=== PATIENT | male | born 1990 | race American Indian/Alaskan Native ===

== ENCOUNTER 2017-05-28 14:24 | Emergency (ER) | payer SELFPAY ==
[2017-05-28] MEDS ORDERED: MOTRIN PO ONE (18:40)
--- NOTE | 2017-05-28 19:02 | Emergency Department Report ---
Entered by KWABENA WASHINGTON, acting as scribe for ROMANA CHRISTOPHER NP. ED Back Pain/Injury HPI - General Chief Complaint: Back Pain/Injury Stated Complaint: BACK PAIN Time Seen by Provider: 05/28/17 18:36 Source: patient Mode of arrival: Ambulatory Limitations: No Limitations - History of Present Illness Initial Comments: 26 y/o male presents to the ED c/o increased back pain since last night. Denies new injury or trauma. PT states he has had back pain for months. PT States it started when he was wrestling in high school. 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 PT requesting a work note. Denies bladder/bowel instability, fever, chills, nausea and vomiting. Pain is described as 5/10 on a severity scale. Patient states he moved here last week and has suffered from chronic back pain since high school. No aggravating or alleviating factors. NKDA. [place]ORGA Complaint: back pain -: Gradual, month(s) Similar Symptoms Previously: Yes Place: home Radiation: none Severity: mild Severity scale (0 -10): 5 Consistency: constant Improves With: none Worsens With: none Associated Symptoms: denies: fever/chills, nausea/vomiting, other (bladder/ bowel instability ) - Related Data Previous Rx's Medication Instructions Recorded Last Taken Type Ibuprofen [Motrin] 600 mg PO Q8H PRN #15 tablet 05/28/17 Unknown Rx methOCARBAMOL [Robaxin TAB] 500 mg PO Q6H PRN #15 tablet 05/28/17 Unknown Rx Allergies Allergy/AdvReac Type Severity Reaction Status Date / Time No Known Allergies Allergy Verified 05/28/17 15:18 ED Review of Systems Comment: All other systems reviewed and negative Constitutional: denies: chills, fever Gastrointestinal: denies: nausea, vomiting Genitourinary: denies: dysuria, other (bladder/bowel instability) ED Past Medical Hx - Past Medical History Previous Medical History?: No - Surgical History Past Surgical History?: No - Social History Smoking Status: Never Smoker Substance Use Type: None - Medications Home Medications: Home Medications Medication Instructions Recorded Confirmed Last Taken Type Ibuprofen [Motrin] 600 mg PO Q8H PRN #15 tablet 05/28/17 Unknown Rx methOCARBAMOL [Robaxin TAB] 500 mg PO Q6H PRN #15 tablet 05/28/17 Unknown Rx ED Physical Exam - General Limitations: No Limitations General appearance: alert, in no apparent distress - Head Head exam: Present: atraumatic, normocephalic, normal inspection - Eye Eye exam: Present: normal appearance, PERRL, EOMI. Absent: scleral icterus, conjunctival injection, nystagmus, periorbital swelling, periorbital tenderness Pupils: Present: normal accommodation - ENT ENT exam: Present: normal exam, normal orophraynx, mucous membranes moist, normal external ear exam - Neck Neck exam: Present: normal inspection, full ROM. Absent: tenderness, meningismus, lymphadenopathy, thyromegaly - Respiratory Respiratory exam: Present: normal lung sounds bilaterally. Absent: respiratory distress, wheezes, rales, rhonchi, stridor, chest wall tenderness, accessory muscle use, decreased breath sounds, prolonged expiratory - Cardiovascular Cardiovascular Exam: Present: regular rate, normal rhythm, normal heart sounds. Absent: bradycardia, tachycardia, irregular rhythm, systolic murmur, diastolic murmur, rubs, gallop - GI/Abdominal GI/Abdominal exam: Present: soft, normal bowel sounds. Absent: distended, tenderness, guarding, rebound, rigid, diminished bowel sounds - Extremities Exam Extremities exam: Present: normal inspection, full ROM, normal capillary refill. Absent: tenderness, pedal edema, joint swelling, calf tenderness - Back Exam Back exam: Present: normal inspection, full ROM, paraspinal tenderness ( tenderness to left paraspinal muscles ). Absent: tenderness, CVA tenderness (R) , CVA tenderness (L), muscle spasm, vertebral tenderness, rash noted - Neurological Exam Neurological exam: Present: alert, oriented X3 - Psychiatric Psychiatric exam: Present: normal affect, normal mood - Skin Skin exam: Present: warm, dry, intact, normal color. Absent: rash ED Course Vital Signs 05/28/17 15:16 Temperature 98.2 F Pulse Rate 92 H Respiratory 16 Rate Blood Pressure 147/108 O2 Sat by Pulse 99 Oximetry - Reevaluation(s) Reevaluation #1: 05/28/17 19:00 PT aware he will need to follow up with PCP for bp recheck. PT states he has anxiety when he leaves the house. PT states he thinks that is why his blood pressure is up. PT states his mother and aunt have bp and verbalizes the understanding for needing follow up - Pulse Oximetry Interpretation Digit-Finger Initial Pulse Oximetry Readin Actions Taken: none ED Medical Decision Making - Differential Diagnosis strain, muscle spasm, htn Critical Care Time: No ED Disposition Clinical Impression: Elevated blood pressure reading Low back pain Qualifiers: Chronicity: chronic Back pain laterality: left Sciatica presence: without sciatica Qualified Code(s): M54.5 - Low back pain Disposition: TO HOME OR SELFCARE Is pt being admited?: No Does the pt Need Aspirin: No Condition: Stable Instructions: Low Back Strain (ED), Hypertension (ED), Chronic Back Pain (ED) Additional Instructions: Follow up with pcp in 3-5 days [address] or alcohol if you need to take Robaxin (muscle relaxer ) Have your bp rechecked on follow - your elevated reading today could be related to pain/ stress or it could be because you have high blood pressure Prescriptions: Ibuprofen [Motrin] 600 mg PO Q8H PRN #15 tablet PRN Reason: Pain methOCARBAMOL [Robaxin TAB] 500 mg PO Q6H PRN #15 tablet PRN Reason: Muscle Spasm Referrals: [facility] [Outside] - 3-5 Days PRIMARY CARE, [Primary Care Provider] - 3-5 Days RUPALI JEAN BAPTISTE MD [Staff Physician] - 3-5 Days Forms: Work/School Release Form(ED) Time of Disposition: 19:02 This documentation as recorded by the FELIX agrawal ELIZABETH,accurately reflects the service I personally performed and the decisions made by ,ROMANA CHRISTOPHER NP.
[2017-05-28 19:07] VITALS: BP 130/76
== END 2017-05-28 19:08 | disposition home or self-care (01) ==
LOC: ED 14:24
DX: M54.5 Low back pain (principal); R03.0 Elevated blood-pressure reading, without diagnosis of hypertension
CPT/HCPCS: 99282

== ENCOUNTER 2017-07-27 12:03 | Emergency (ER) | payer MEDICAID | END 2017-07-27 12:05 | disposition left against medical advice (07) | LOC: ED 12:03 | DX: M54.9 Dorsalgia, unspecified (principal); Z53.21 Procedure and treatment not carried out due to patient leaving prior to being seen by health care provider ==

== ENCOUNTER 2017-07-28 09:14 | Emergency (ER) | payer MEDICAID ==
[2017-07-28 09:22] VITALS: BP 139/96
--- NOTE | 2017-07-28 11:56 | Emergency Department Report ---
ED Back Pain/Injury HPI - General Chief Complaint: Back Pain/Injury Stated Complaint: BACK INJURY Source: patient Mode of arrival: Ambulatory Limitations: No Limitations - History of Present Illness Initial Comments: 26 y/o M presents of upper back pain that started 3 days ago after he was lifting heavy boxes. Pt states that this has been an ongoing issue for the past 7-8 years since he was 18 years old when he was wrestling with his cousin he irritated his back and now he has recurrent pain of his upper left back everytime he lifts a heavy object. 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 He was seen 2 months ago for a similar issue and was given ibuprofen and robaxin with relief of the pain. Pt states that he did experience some chest discomfort and SOB during the incidence. He denies any chest pain, SOB, blurried vision, numbness, tingling, bladder/bowel incontinces , or cauda equina at this time. He has not tried anything for the pain. NKDA. [place]OR[place] Complaint: back pain -: year(s) (since he was 18 years old, ongoing issue) Similar Symptoms Previously: Yes Place: work Radiation: none Severity: mild Severity scale (0 -10): 3 Quality: dull Consistency: constant Improves With: none Worsens With: movement Context: while lifting Associated Symptoms: chest pain, shortness of breath. denies: confusion, weakness, numbness, difficulty walking, cough, difficulty urinating, incontinence, fever/chills, constipation, abdominal pain, loss of appetite, nausea/vomiting - Related Data Previous Rx's Medication Instructions Recorded Last Taken Type Ibuprofen [Motrin] 600 mg PO Q8H PRN #15 tablet 05/28/17 Unknown Rx methOCARBAMOL [Robaxin TAB] 500 mg PO Q6H PRN #15 tablet 05/28/17 Unknown Rx methOCARBAMOL [Robaxin TAB] 500 mg PO Q6H PRN #15 tablet 07/28/17 Unknown Rx Allergies Allergy/AdvReac Type Severity Reaction Status Date / Time No Known Allergies Allergy Verified 05/28/17 15:18 ED Review of Systems ROS: Stated complaint: BACK INJURY Other details as noted in HPI Constitutional: denies: chills, fever Eyes: denies: eye pain, eye discharge, vision change ENT: denies: ear pain, throat pain Respiratory: shortness of breath. denies: cough, orthopnea Cardiovascular: chest pain. denies: palpitations, dyspnea on exertion, orthopnea, edema Gastrointestinal: denies: abdominal pain, nausea, diarrhea Genitourinary: denies: urgency, dysuria Musculoskeletal: back pain (upper left back). denies: joint swelling, arthralgia Skin: denies: rash, lesions Neurological: denies: headache, weakness, paresthesias Psychiatric: denies: anxiety, depression Hematological/Lymphatic: denies: easy bleeding, easy bruising ED Past Medical Hx - Past Medical History Previous Medical History?: Yes Hx Hypertension: Yes Additional medical history: heart murmur - Surgical History Past Surgical History?: No - Social History Smoking Status: Current Some Day Smoker Substance Use Type: Alcohol - Medications Home Medications: Home Medications Medication Instructions Recorded Confirmed Last Taken Type Ibuprofen [Motrin] 600 mg PO Q8H PRN #15 tablet 05/28/17 Unknown Rx methOCARBAMOL [Robaxin TAB] 500 mg PO Q6H PRN #15 tablet 05/28/17 Unknown Rx methOCARBAMOL [Robaxin TAB] 500 mg PO Q6H PRN #15 tablet 07/28/17 Unknown Rx ED Physical Exam - General Limitations: No Limitations General appearance: alert, in no apparent distress - Head Head exam: Present: atraumatic, normocephalic - Eye Eye exam: Present: normal appearance - ENT ENT exam: Present: mucous membranes moist - Neck Neck exam: Present: normal inspection - Respiratory Respiratory exam: Present: normal lung sounds bilaterally. Absent: respiratory distress, chest wall tenderness - Cardiovascular Cardiovascular Exam: Present: regular rate, normal rhythm. Absent: systolic murmur, diastolic murmur, rubs, gallop - Extremities Exam Extremities exam: Present: full ROM, normal capillary refill, other (there was no swelling, redness, or TTP at the left shoulder joint, no evidence of abnormalities) - Back Exam Back exam: Present: full ROM, tenderness (there was left upper back paraspinal tenderness noted, no radiation), muscle spasm, paraspinal tenderness, other ( there was no vertebral tenderness) - Neurological Exam Neurological exam: Present: alert, oriented X3, normal gait - Expanded Neurological Exam Expanded Patient oriented to: Present: person, place, time Speech: Present: fluid speech Cerebellar function: Romberg: Normal Sensory exam: Upper Extremity Light Touch: Normal, Upper Extremity Pin Prick: Normal Motor strength exam: RUE: 5, LUE: 5, RLE: 5, LLE: 5 Best Eye Response (Bath): (4) open spontaneously Best Motor Response (Bath): (6) obeys commands Best Verbal Response (Clark): (5) oriented Bath Total: 15 - Psychiatric Psychiatric exam: Present: normal affect, normal mood - Skin Skin exam: Present: warm, dry, intact, normal color. Absent: rash ED Course Vital Signs 07/28/17 09:18 Temperature 98.2 F Pulse Rate 61 Respiratory 14 Rate Blood Pressure 139/96 O2 Sat by Pulse 98 Oximetry ED Medical Decision Making - Medical Decision Making Pt stated that he experienced SOB and chest pain when he felt the sharp pain in his upper back when lifiting heavy boxes. Pt denied EKG, cardiac and pulmonary work-up at this time, risks of refusal were explained in detail to the patient with Kay Mares (RN) in the room to witness. Refusal of services form was signs with witness signed as well. Case was discusses with Dr. Jonas, he states that he does not recommend starting on BP medications at this time and to recommend OP follow-up. I gave him tylenol extra strength here in the ED for the pain. He was discharged on Robaxin RX and tylenol OTC with recommended warm compresses and tiger balm patches. He was given referrals to PCP, cardio , and orthopedics, he was strongly encouraged to log his BP readings and present to PCP, advised low salt diet, and fruits and vegetable diet. Pt was discharged in stable condition, he is alert and oriented and in no resp distress. Vitals are stable. Critical care attestation.: If time is entered above; I have spent that time in minutes in the direct care of this critically ill patient, excluding procedure time. ED Disposition Clinical Impression: Muscle spasm Disposition: DC-01 TO HOME OR SELFCARE Is pt being admited?: No Does the pt Need Aspirin: No Condition: Stable Instructions: Methocarbamol (By mouth), Muscle Spasm (ED) Additional Instructions: Please follow-up with the Pcp for your elevated BP readings, such elevated readings can lead to stroke and heart attacks. Please be advised that muscle relaxant may make you drowsy, do not take when driving or operating heavy machinery. Please take tylenol as needed in addition with the robaxin for the pain. You may purchase tiger balm patches and alternate between warm and cool compresses at the site. Please follow-up with PCP within 3-5 days and orthopedics within 1 week. Return to the ER immediately with any acute worsening of your symptoms such as chest pain, SOB, numbness, or tingling/ blurried vision. Prescriptions: methOCARBAMOL [Robaxin TAB] 500 mg PO Q6H PRN #15 tablet PRN Reason: muscle spasm Referrals: [facility] [Outside] - 3-5 Days [facility] [Outside] - 3-5 Days PRIMARY CARE, [Primary Care Provider] - 3-5 Days JOHN SIMENTAL MD [Staff Physician] - 3-5 Days DA MENEZES MD [Staff Physician] - 3-5 Days Forms: AMA Form, Work/School Release Form
[2017-07-28] MEDS ORDERED: TYLENOL PO ONE (12:38)
== END 2017-07-28 13:09 | disposition home or self-care (01) ==
LOC: ED 09:14
DX: M62.830 Muscle spasm of back (principal); I10 Essential (primary) hypertension; F17.200 Nicotine dependence, unspecified, uncomplicated; X50.0XXA Overexertion from strenuous movement or load, initial encounter; Y93.89 Activity, other specified; Y92.89 Other specified places as the place of occurrence of the external cause; Y99.8 Other external cause status
CPT/HCPCS: 99282